=== PATIENT | male | born 1995 | race African-American/Black ===

== ENCOUNTER 2017-07-22 21:27 | Emergency (ER) | payer OTHER ==
[~2017-07-22] VITALS: Ht 165.1 cm; Wt 59.0 kg
[2017-07-22 21:39] VITALS: BP 120/71
[2017-07-22 21:48] LABS: URINE BILIRUBIN NEGATIVE (Negative); URINE BLOOD 1+ (Negative); URINE COLOR YELLOW; URINE GLUCOSE-RANDOM* NEGATIVE (Negative); URINE KETONES NEGATIVE (Negative); URINE NITRITE NEGATIVE (Negative); URINE PROTEIN (DIPSTICK) NEGATIVE (Negative); URINE SPECIFIC GRAVITY 1.025 (1.003-1.035)
[2017-07-22 21:56] LABS: URINE WBC >25 Many /HPF (0-5)
[2017-07-22 21:57] LABS: CASTS None Seen /LPF (None Seen); CRYSTALS None Seen /LPF (None Seen); SQUAMOUS None Seen /LPF (0-3); URINE RBC 0-2 Rare /HPF (0-2)
[2017-07-22 21:58] LABS: BACTERIA 1-9 Few /HPF (None Seen)
[2017-07-22] MEDS ORDERED: KEFLEX500 M1 PO (22:13)
[2017-07-24 14:10] LABS: CHLAMYDIA TRACHOMATIS-PCR Negative (Negative)
== END 2017-07-22 22:28 | disposition home or self-care (01) ==
LOC: ER 21:27
PROVIDERS: Nurse Practitioner
DX: N39.0 Urinary tract infection, site not specified (principal); Z20.2 Contact with and (suspected) exposure to infections with a predominantly sexual mode of transmission